=== PATIENT | male | born 1950 | race Caucasian/White ===

== ENCOUNTER 2019-11-12 18:02 | Emergency (ER) | payer OTHER, MEDICARE ==
[~2019-11-12] VITALS: Ht 188 cm; Wt 104.3 kg
[2019-11-12 18:06] VITALS: BP 170/61
[2019-11-12] MEDS ORDERED: LIPITOR10 MG PO (18:11)
[2019-11-12] MEDS ORDERED: NIACIN 500 MG500 M1 PO (18:11)
[2019-11-12] MEDS ORDERED: METFORMIN HCL500 M3 PO (18:11)
[2019-11-12] MEDS ORDERED: PAXIL40 MG PO (18:12)
[2019-11-12] MEDS ORDERED: DOXAZOSIN MESYLA4 MG PO (18:12)
[2019-11-12] MEDS ORDERED: IRON236 MG PO (18:13)
[2019-11-12] MEDS ORDERED: NOVOLOG100 UNIT/M SUBQ (18:13)
[2019-11-12] MEDS ORDERED: DAILY VITAMIN1 EAC4 PO (18:14)
[2019-11-12] MEDS ORDERED: ZESTRIL10 MG PO (18:14)
== END 2019-11-12 19:30 | disposition home or self-care (01) ==
LOC: ER 18:02
DX: S00.83XA Contusion of other part of head, initial encounter (principal); S00.31XA Abrasion of nose, initial encounter; S60.512A Abrasion of left hand, initial encounter; E78.5 Hyperlipidemia, unspecified; E11.9 Type 2 diabetes mellitus without complications; I10 Essential (primary) hypertension; Z79.899 Other long term (current) drug therapy; Z88.2 Allergy status to sulfonamides; W18.30XA Fall on same level, unspecified, initial encounter; Y93.89 Activity, other specified; Y92.89 Other specified places as the place of occurrence of the external cause; Y99.8 Other external cause status